=== PATIENT | female | born 1975 | race Caucasian/White ===

== ENCOUNTER 2019-01-21 06:10 | Day surgery (SDC) | payer OTHER ==
[~2019-01-21 06:10] MED LIST: CALCI PO; GNP NORWEGIAN1 EACH PO; RISPERDAL0.5 MG PO; SYNTHROID88 MCG PO; WELLBUTRIN XL300 MG PO; [UNRECOGNIZED DRUG - OTHER] PO
[2019-01-21] MEDS ORDERED: ZITHROMAX500 MG PO (10:36)
[2019-01-21] MEDS ORDERED: NAPR500T14 PO (10:36)
== END 2019-01-21 15:25 | disposition home or self-care (01) ==
LOC: CIR.AMB 06:10
DX: N95.0 Postmenopausal bleeding (principal)

== ENCOUNTER 2022-05-09 08:30 | Day surgery (SDC) | payer OTHER ==
[~2022-05-09 08:30] MED LIST changes: +ABILIFY5 MG PO; +COZAAR50 MG PO; +LIPIT PO; +NAPR500T14 PO; +ZITHROMAX500 MG PO
[2022-05-09] MEDS ORDERED: ZITHROMAX500 MG PO (18:52)
[2022-05-09] MEDS ORDERED: IBUPROFEN400 MG PO (18:52)
== END 2022-05-09 20:15 | disposition home or self-care (01) ==
LOC: CIR.AMB 08:30
PROVIDERS: ATTEND Obstetrics & Gynecology
DX: N84.0 Polyp of corpus uteri (principal); I10 Essential (primary) hypertension; E11.9 Type 2 diabetes mellitus without complications; E03.9 Hypothyroidism, unspecified; F20.89 Other schizophrenia